=== PATIENT | male | born 1935 ===

== ENCOUNTER 2018-08-19 23:25 | Emergency (ER) | payer MEDICARE, MEDICAID ==
[2018-08-19 23:44] VITALS: O2SAT 99
--- NOTE | 2018-08-19 23:48 | C.PDOC ---
History Of Present Illness 83 year old male with PMHx of DM presents to the ED c/o generalized itching for the past 10 days. Patient denies fever, chills, nausea, vomit, abdominal pain, CP, SOB, wheezing. Time Seen by Provider: 08/19/18 23:48 Chief Complaint (Nursing): Medical Clearance History Per: Patient History/Exam Limitations: no limitations Onset/Duration Of Symptoms: Days Recent travel outside of the [place]: No Additional History Per: Patient Past Medical History Reviewed: Historical Data, Nursing Documentation, Vital Signs Vital Signs: Last Vital Signs Temp 97.9 F 08/19/18 23:33 Pulse 100 H 08/19/18 23:33 Resp 20 08/19/18 23:33 BP 152/75 H 08/19/18 23:33 Pulse Ox 99 08/19/18 23:33 - Medical History PMH: Arthritis, Diabetes, HTN Surgical History: No Surg Hx Family History: States: Unknown Family Hx - Social History Hx Tobacco Use: No Hx Alcohol Use: Yes Hx Substance Use: No - Immunization History Hx Tetanus Toxoid Vaccination: No Hx Influenza Vaccination: Yes Hx Pneumococcal Vaccination: Yes Review Of Systems Constitutional: Negative for: Fever, Chills ENT: Negative for: Throat Pain, Throat Swelling Cardiovascular: Negative for: Chest Pain, Palpitations Respiratory: Negative for: Cough, Shortness of Breath Gastrointestinal: Negative for: Nausea, Vomiting, Abdominal Pain Skin: Positive for: Rash Neurological: Negative for: Weakness, Numbness, Headache, Dizziness Physical Exam - Physical Exam Appears: Non-toxic, No Acute Distress Skin: Warm, Dry, Rash (diffuse urticarial rash) Head: Normacephalic Eye(s): bilateral: Normal Inspection Oral Mucosa: Moist Tongue: No Swelling Lips: No Swelling Throat: No Erythema, No Exudate, No Drooling Neck: Supple Chest: Symmetrical Cardiovascular: Rhythm Regular Respiratory: No Rales, No Rhonchi, No Wheezing Gastrointestinal/Abdominal: Soft, No Tenderness, No Guarding, No Rebound Extremity: Pedal Edema (trace ), Capillary Refill (< 2 seconds) Extremity: Right: Other (venous stasis sking changes), Bilateral: Atraumatic, Normal ROM Pulses: Left Dorsalis Pedis: Normal, Right Dorsalis Pedis: Normal Neurological/Psych: Oriented x3, Normal Speech, Normal Cognition Gait: Steady ED Course And Treatment - Laboratory Results Result Diagrams: 08/20/18 01:01 08/20/18 01:01 O2 Sat by Pulse Oximetry: 99 (ON RA) Pulse Ox Interpretation: Normal Progress Note: Plan: - Labs. - Pepcid 20 mg IVP. - Solumedrol 125 mg IVP. - UA. feels fine. uricaria almost completely resolved Reevaluation Time: 02:55 Reassessment Condition: Improved Disposition Counseled Patient/Family Regarding: Studies Performed, Diagnosis, Need For Followup, Rx Given - Disposition Referrals: Ramon Meier MD [Staff Provider] - Disposition: HOME/ ROUTINE Disposition Time: 23:48 Condition: FAIR Additional Instructions: Please return if symptoms recur. Also use benadryl, pepcid and claritin Prescriptions: Prednisone [Deltasone] 20 mg PO DAILY #5 tablet Instructions: Hives (DC), Itchy Skin Forms: [facility] (Irish) - Clinical Impression Clinical Impression: Urticaria - Scribe Statement The provider has reviewed the documentation as recorded by the Scribe Sharad Caro All medical record entries made by the Scribe were at my direction and personally dictated by me. I have reviewed the chart and agree that the record a ccurately reflects my personal performance of the history, physical exam, medical decision making, and the department course for this patient. I have also personally directed, reviewed, and agree with the discharge instructions and disposition.
[2018-08-20 01:09] LABS: BASO % 0.5 % (0.0-2.0); EOS # 0.5 K/uL (0.0-0.7); EOS % 7.8 % (0.0-4.0); HEMOGLOBIN 12.4 g/dL (12.0-18.0); LYMPH # 1.3 K/uL (1.0-4.3); LYMPH % 20.4 % (20.0-40.0); MEAN CELL VOLUME 90.5 fL (80.0-94.0); MEAN CORPUSCULAR HEMOGLOBIN 29.7 pg (27.0-31.0); MEAN CORPUSCULAR HGB CONC 32.8 g/dL (33.0-37.0); MEAN PLATELET VOLUME 7.7 fL (7.2-11.7); MONO # 0.5 K/uL (0.0-0.8); MONO % 7.5 % (0.0-10.0); NEUT # 4.1 K/uL (1.8-7.0); NEUT % 63.8 % (50.0-75.0); NRBC % 0.1 % (0.0-2.0); RBC 4.17 Mil/uL (4.40-5.90); RED CELL DISTRIBUTION WIDTH 19.6 % (11.5-14.5); WHITE BLOOD COUNT 6.4 K/uL (4.8-10.8)
[2018-08-20 01:50] LABS: ALB/GLOB RATIO 1.2 (1.0-2.1); ALBUMIN 3.4 g/dL (3.5-5.0); BLOOD UREA NITROGEN 12 mg/dL (9-20); CALCIUM 8.1 mg/dl (8.6-10.4); GFR NON-AFRICAN AMERICAN > 60
[2018-08-20 01:54] LABS: ALT/SGPT 26 U/L (21-72); AST/SGOT 32 U/L (17-59)
[2018-08-20 03:25] VITALS: BP 141/76; PULSE 79; RESP 18; TEMP 98.1
== END 2018-08-20 03:26 | disposition home or self-care (01) ==
LOC: C.ER 23:25
DX: L50.9 Urticaria, unspecified (principal)
CPT/HCPCS: 80053; 84484; 85025; 96374; 96375; 99283; J2930